=== PATIENT | male | born 1940 | race Caucasian/White ===

== ENCOUNTER 2020-01-22 13:19 | Outpatient (RCR) | payer MEDICARE, OTHER ==
[~2020-01-22] VITALS: Ht 177.8 cm; Wt 98.9 kg
[2020-01-22] MEDS ORDERED: NS IV 1000 ML (CANCER CTR) 1,000 ML ONE (14:13)
[2020-01-22] MEDS ORDERED: NS IV 1000 ML (CANCER CTR) IV SCH (14:30)
[2020-01-22] MEDS ORDERED: NIVOLUMAB 480 MG in NS (IVPB) CANCER CENTER 100 ML IV SCH (14:30)
[2020-01-29] MEDS ORDERED: RT-ALBUINH IH (13:07)
[2020-01-29] MEDS ORDERED: ONDA4TAB11 PO (13:07)
[2020-04-21] MEDS ORDERED: ACET325C7 PO (12:57)
[2020-04-21] MEDS ORDERED: LEVO50TA6 PO (12:57)
[2020-04-21] MEDS ORDERED: APIX5TAB PO (12:57)
[2020-04-21] MEDS ORDERED: NF-BISOP5 PO (12:57)
[2020-04-21] MEDS ORDERED: FINA5TAB6 PO (12:57)
[2020-04-21] MEDS ORDERED: ATOR10TA66 PO (12:57)
[2020-04-21] MEDS ORDERED: TMSL.4C PO (12:57)
[2020-04-21] MEDS ORDERED: LOSA100T57 PO (12:57)
[2020-04-21] MEDS ORDERED: AMLO-251 PO (12:57)
[2020-04-22] MEDS ORDERED: SULF1TAB35 PO ×2 (10:04→10:13)
== END 2020-04-21 | disposition home or self-care (01) ==
LOC: ONC 13:19
PROVIDERS: ATTEND Internal Medicine Hematology & Oncology
DX: Z51.11 Encounter for antineoplastic chemotherapy (principal); C64.1 Malignant neoplasm of right kidney, except renal pelvis; C77.2 Secondary and unspecified malignant neoplasm of intra-abdominal lymph nodes; I82.422 Acute embolism and thrombosis of left iliac vein; I10 Essential (primary) hypertension; Z85.51 Personal history of malignant neoplasm of bladder; Z90.6 Acquired absence of other parts of urinary tract; Z90.5 Acquired absence of kidney
CPT/HCPCS: 96413; G0463

== ENCOUNTER 2020-01-29 08:32 | Emergency (ER) | payer MEDICARE, OTHER ==
[~2020-01-29] VITALS: Ht 177 cm; Wt 97.9 kg
[2020-01-29] MEDS ORDERED: NS IV 1000 ML 1,000 ML IV SCH (08:51)
[2020-01-29] MEDS ORDERED: PIPERACILLIN SODIUM/TAZOBACTAM 4.5 GM in NS (IVPB) 100 ML IV ONE (09:00)
[2020-01-29 09:01] LABS: BASOPHILS % (AUTO) 0 % (0-10); EOSINOPHILS % (AUTO) 0 % (0-10); HEMATOCRIT 41 % (40-54); HEMOGLOBIN 13.4 G/DL (13.3-17.7); LYMPHOCYTES # (AUTO) 1.9 X 10^3 (1.0-4.0); LYMPHOCYTES % (AUTO) 35 % (12-44); MEAN CORPUSCULAR HEMOGLOBIN 28 PG (25-34); MEAN CORPUSCULAR HGB CONC 33 G/DL (32-36); MEAN CORPUSCULAR VOLUME 85 FL (80-99); MEAN PLATELET VOLUME 10.1 FL (7.4-10.4); MONOCYTES # (AUTO) 0.5 X 10^3 (0.0-1.0); MONOCYTES % (AUTO) 10 % (0-12); NEUTROPHILS % (AUTO) 55 % (42-75); PLATELET COUNT 161 10^3/uL (130-400); WHITE BLOOD COUNT 5.4 10^3/uL (4.3-11.0)
[2020-01-29 09:05] LABS: BILIRUBIN,URINE NEGATIVE (NEGATIVE); CLARITY,URINE CLEAR; COLOR,URINE YELLOW; GLUCOSE, URINE (UA) NEGATIVE (NEGATIVE); KETONES,URINE NEGATIVE (NEGATIVE); LEUKOCYTE ESTERASE ,URINE TRACE (NEGATIVE); NITRITE,URINE NEGATIVE (NEGATIVE); PROTEIN,URINE NEGATIVE (NEGATIVE)
[2020-01-29 09:10] LABS: POTASSIUM 3.8 MMOL/L (3.6-5.0)
--- NOTE | 2020-01-29 09:10 | NUR ---
LAB IN ROOM DRAWING AT THIS TIME.
[2020-01-29 09:11] LABS: CALCIUM 8.4 MG/DL (8.5-10.1)
[2020-01-29 09:13] LABS: BACTERIA,URINE TRACE /HPF; RBC,URINE RARE /HPF; SQUAMOUS EPITHELIAL CELL,UR 0-2 /HPF
[2020-01-29 09:13] LABS: TOTAL PROTEIN 7.3 GM/DL (6.4-8.2)
[2020-01-29 09:14] LABS: BILIRUBIN,TOTAL 0.7 MG/DL (0.1-1.0); INR 1.1 (0.8-1.4); PROTHROMBIN TIME PATIENT 14.2 SEC (12.2-14.7)
[2020-01-29 09:16] LABS: CREATININE SERUM 1.37 MG/DL (0.60-1.30)
--- NOTE | 2020-01-29 09:32 | Diagnostic Imaging Report ---
INDICATION: Generalized weakness and fever. Frontal chest obtained at 09:29 a.m. There is no prior study for comparison. FINDINGS: Heart is borderline in size. There is mild central vascular prominence without rubina edema. There is no pneumothorax or pleural fluid. There is vague density overlying the right upper lobe which may represent infiltrate or nodule. Would recommend CT chest for further evaluation. IMPRESSION: Borderline heart size with mild central vascular prominence. No pneumothorax or pleural fluid. There is a vague density overlying the right upper lobe which may represent infiltrate or nodule. Would recommend further evaluation with chest CT. Dictated by: Dictated on workstation # [id number]
--- NOTE | 2020-01-29 09:43 | ED Back Pain ---
General Chief Complaint: - Urinary Stated Complaint: BACK PAIN;WEAKNESS Nursing Triage Note: ARRIVED VIA AMB TO ROOM 06 WITH COMPLAINTS OF GENERALIZED WEAKNESS, BACK PAIN, AND HIGH FEVER. PT THINKS HE HAS ANOTHER BLADDER INFECTION. HX OF BLADDER PROBLEMS. Nursing Sepsis Screen: No Definite Risk Source of Information: Patient Exam Limitations: No Limitations History of Present Illness Date Seen by Provider: Jan 29, 2020 Time Seen by Provider: 08:37 Initial Comments Patient presents ER by private conveyance with chief complaint of fever malaise and backache since Monday, 3 days ago. Tmax of 100.5. He is here visiting his son. He's from [place]. 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 He is followed by urology and oncology in [place] where he is from. He did see Dr. Augustine last week Monday and received a dose of his Optivo. He took some Tylenol for his pain and that took care of his fever as well as backache and he says he is not having any significant pain. He did start taking some leftover amoxicillin he had. He said 3 doses so far. Allergies and Home Medications Allergies Coded Allergies: ciprofloxacin (Verified Allergy, Unknown, 01/22/20) hydrochlorothiazide (Verified Allergy, Unknown, 01/22/20) Home Medications Albuterol Sulfate 1 Puff Puff, 2 PUFF IH Q4H PRN for WHEEZING 1 PUFF = 90 MCG Prescribed by: MARVIN BILL on 01/29/20 1307 Ondansetron 4 Mg Tab.rapdis, 4 MG PO Q6H PRN for NAUSEA/VOMITING Prescribed by: MARVIN BILL on 01/29/20 1307 Patient Home Medication List Home Medication List Reviewed: Yes Review of Systems Constitutional: No chills, No diaphoresis EENTM: No ear discharge, No ear pain Respiratory: No cough, No short of breath Cardiovascular: No chest pain, No edema Gastrointestinal: No abdominal pain, No nausea, No vomiting Genitourinary: No discharge, No dysuria Musculoskeletal: No back pain, No gout, No joint pain Skin: No pruritus, No rash Psychiatric/Neurological: Denies Headache, Denies Numbness All Other Systems Reviewed Negative Unless Noted: Yes Past Nwkbhta-Cmwjen-Oyfatq Hx Patient Social History Alcohol Use: Denies Use Recreational Drug Use: No Smoking Status: Never a Smoker Recent Foreign Travel: No Contact w/Someone Who Travel: No Recent Infectious Disease Expo: No Recent Hopitalizations: No Past Medical History Surgeries: Yes (RIGHT KIDNEY REMOVED, MASS ON BLADDER REMOVED,) Respiratory: No Cardiac: Yes Aneurysm, Hypertension Neurological: No Genitourinary: Yes Prostate Problems Gastrointestinal: No Musculoskeletal: No Endocrine: No HEENT: No Cancer: Yes Bladder, Kidney Did You Recieve Any Treatments: Yes What Type of Treatment Did You: Chemotherapy CURRENTLY RECIEVING CHEMO INJECTIONS MONTHLY. Integumentary: No Physical Exam Vital Signs Vital Signs - First Documented 01/29/20 08:40 Temp 37.3 Pulse 64 Resp 16 B/P (MAP) 142/82 (102) Pulse Ox 95 O2 Delivery Room Air Capillary Refill : Less Than 3 Seconds Height, Weight, BMI Height: '" Weight: lbs. oz. kg; 31.00 BMI Method: General Appearance: No Apparent Distress, WD/WN HEENT: PERRL/EOMI, TMs Normal, Normal ENT Inspection, Pharynx Normal, Moist Muc ous Membranes Neck: Full Range of Motion, Normal Inspection, Non Tender Cardiovascular: Regular Rate, Rhythm, No Edema, Normal Peripheral Pulses Respiratory: Lungs Clear, Normal Breath Sounds, No Accessory Muscle Use, No Respiratory Distress Peripheral Pulses: 2+ Radial Pulses (R), 2+ Radial Pulses (L) Gastrointestinal: Normal Bowel Sounds, No Organomegaly, Non Tender, Soft Back: Normal Inspection, No CVA Tenderness Extremity: Normal Capillary Refill, Normal Inspection Neurologic/Psychiatric: Alert, Oriented x3, No Motor/Sensory Deficits, Normal Mood/Affect Skin: Normal Color, Warm/Dry Progress/Results/Core Measures Results/Orders Lab Results Laboratory Tests Test 01/29/20 08:45 01/29/20 08:59 01/29/20 10:20 Range/Units White Blood Count 5.4 4.3-11.0 10^3/uL Red Blood Count 4.85 4.35-5.85 10^6/uL Hemoglobin 13.4 13.3-17.7 G/DL Hematocrit 41 40-54 % Mean Corpuscular Volume 85 80-99 FL Mean Corpuscular Hemoglobin 28 25-34 PG Mean Corpuscular Hemoglobin Concent 33 32-36 G/DL Red Cell Distribution Width 14.9 H 10.0-14.5 % Platelet Count 161 130-400 10^3/uL Mean Platelet Volume 10.1 7.4-10.4 FL Neutrophils (%) (Auto) 55 42-75 % Lymphocytes (%) (Auto) 35 12-44 % Monocytes (%) (Auto) 10 0-12 % Eosinophils (%) (Auto) 0 0-10 % Basophils (%) (Auto) 0 0-10 % Neutrophils # (Auto) 3.0 1.8-7.8 X 10^3 Lymphocytes # (Auto) 1.9 1.0-4.0 X 10^3 Monocytes # (Auto) 0.5 0.0-1.0 X 10^3 Eosinophils # (Auto) 0.0 0.0-0.3 10^3/uL Basophils # (Auto) 0.0 0.0-0.1 10^3/uL Prothrombin Time 14.2 12.2-14.7 SEC INR Comment 1.1 0.8-1.4 Activated Partial Thromboplast Time 34 24-35 SEC Sodium Level 136 135-145 MMOL/L Potassium Level 3.8 3.6-5.0 MMOL/L Chloride Level 104 98-107 MMOL/L Carbon Dioxide Level 20 L 21-32 MMOL/L Anion Gap 12 5-14 MMOL/L Blood Urea Nitrogen 17 7-18 MG/DL Creatinine 1.37 H 0.60-1.30 MG/DL Estimat Glomerular Filtration Rate 50 BUN/Creatinine Ratio 12 Glucose Level 101 70-105 MG/DL Lactic Acid Level 0.97 0.50-2.00 MMOL/L Calcium Level 8.4 L 8.5-10.1 MG/DL Corrected Calcium 8.4 L 8.5-10.1 MG/DL Total Bilirubin 0.7 0.1-1.0 MG/DL Aspartate Amino Transf (AST/SGOT) 29 5-34 U/L Alanine Aminotransferase (ALT/SGPT) 27 0-55 U/L Alkaline Phosphatase 70 40-136 U/L Total Protein 7.3 6.4-8.2 GM/DL Albumin 4.0 3.2-4.5 GM/DL Urine Color YELLOW Urine Clarity CLEAR Urine pH 6.0 5-9 Urine Specific [place] 1.010 L 1.016-1.022 Urine Protein NEGATIVE NEGATIVE Urine Glucose (UA) NEGATIVE NEGATIVE Urine Ketones NEGATIVE NEGATIVE Urine Nitrite NEGATIVE NEGATIVE Urine Bilirubin NEGATIVE NEGATIVE Urine Urobilinogen 0.2 < = 1.0 MG/DL Urine Leukocyte Esterase TRACE H NEGATIVE Urine RBC (Auto) NEGATIVE NEGATIVE Urine RBC RARE /HPF Urine WBC 2-5 /HPF Urine Squamous Epithelial Cells 0-2 /HPF Urine Crystals NONE /LPF Urine Bacteria TRACE /HPF Urine Casts NONE /LPF Urine Mucus NEGATIVE /LPF Urine Culture Indicated CULTURE PENDING Coronavirus 2019 (TRIP) Positive H Negative Micro Results Microbiology 01/29/20 Influenza Types A,B Antigen (MELLISSA) - Final, Complete My Orders Orders - MARVIN BILL Ua Culture If Indicated (01/29/20 08:34) Cbc With Automated Diff (01/29/20 08:51) Comprehensive Metabolic Panel (01/29/20 08:51) Blood Culture (01/29/20 08:51) Urinalysis (01/29/20 08:51) Urine Culture (01/29/20 08:51) Protime With Inr (01/29/20 08:51) Partial Thromboplastin Time (01/29/20 08:51) Chest 1 View, Ap/Pa Only (01/29/20 08:51) Ed Iv/Invasive Line Start (01/29/20 08:51) Ed Iv/Invasive Line Start (01/29/20 08:51) Vital Signs Adult Sepsis Patie Q15M (01/29/20 08:51) O2 (01/29/20 08:51) Remove Rings In Anticipation O (01/29/20 08:51) Lactic Acid Analyzer (01/29/20 08:51) Ns Iv 1000 Ml (Sodium Chloride 0.9%) (01/29/20 08:51) Piperacillin Sodium/Tazobactam (Zosyn Vi (01/29/20 09:00) Covid 19 Inhouse Test (01/29/20 09:44) Influenza A And B Antigens (01/29/20 09:44) Ct Abdomen/Pelvis Wo (01/29/20 09:44) Medications Given in ED Current Medications Medications Dose Ordered Sig/Hugo Route Start Time Stop Time Status Last Admin Dose Admin Piperacillin Sod/ Tazobactam Sod 4.5 gm/Sodium Chloride 100 ml @ 200 mls/hr ONCE ONCE IV 01/29/20 09:00 01/29/20 09:29 DC 01/29/20 09:49 200 MLS/HR Vital Signs/I&O 01/29/20 01/29/20 08:40 13:25 Temp 37.3 37.3 Pulse 64 66 Resp 16 16 B/P (MAP) 142/82 (102) 151/69 Pulse Ox 95 97 O2 Delivery Room Air Room Air Blood Pressure Mean: 102 Progress Progress Note #1: Time: 09:43 Progress Note Initial labs are fairly unrevealing although he is on immunotherapy. He did take 3 doses of amoxicillin which may be masking his urinary tract infection. We will expand search with a COVID 19 swab, influenza swab and a CT of the abdomen pelvis without IV contrast. Progress Note #2: Time: 13:04 Progress Note Infiltrate seen on chest x-ray likely related to COVID-19. No markers of inflammation or significant elevation in the white count. CT abdomen pelvis unremarkable. He is not requiring oxygen and has aseptic vital signs. That he does not need steroids since he is not requiring any oxygen. We will give him some Zofran, and an albuterol inhaler. Conservative counseling. Return precautions discussed. Diagnostic Imaging Diagonstic Imaging: Xray Plain Films/CT/US/NM/MRI: chest Comments [facility]. [place], [place] NAME: SAMEER MUNOZ [facility] REC#: [id number] PT STATUS: REG ER : 1940 PHYSICIAN: MARVIN BILL MD ADMIT DATE: 01/29/20/ER Signed Date of Exam:01/29/20 CHEST 1 VIEW, AP/PA ONLY INDICATION: Generalized weakness and fever. Frontal chest obtained at 09:29 a.m. There is no prior study for comparison. FINDINGS: Heart is borderline in size. There is mild central vascular prominence without rubina edema. There is no pneumothorax or pleural fluid. There is vague density overlying the right upper lobe which may represent infiltrate or nodule. Would recommend CT chest for further evaluation. IMPRESSION: Borderline heart size with mild central vascular prominence. No pneumothorax or pleural fluid. There is a vague density overlying the right upper lobe which may represent infiltrate or nodule. Would recommend further evaluation with chest CT. Dictated by: Dictated on workstation # [id number] Dict: 01/29/20 0928 Trans: 01/29/20 1051 [id number] Interpreted by: ELLI HERNANDEZ MD Electronically signed by: ELLI HERNANDEZ MD 01/29/20 1051 Reviewed: Reviewed by Me Diagonstic Imaging: CT Plain Films/CT/US/NM/MRI: abdomen, pelvis Comments [facility], [place] NAME: SAMEER MUNOZ [facility] REC#: [id number] PT STATUS: REG ER : 1940 PHYSICIAN: MARVIN BILL MD ADMIT DATE: 01/29/20/ER Draft Date of Exam:01/29/20 CT ABDOMEN/PELVIS WO PROCEDURE: CT abdomen and pelvis without contrast. TECHNIQUE: Multiple contiguous axial images were obtained through the abdomen and pelvis without the use of intravenous contrast. Auto Exposure Controls were utilized during the CT exam to meet ALARA standards for radiation dose reduction. INDICATION: Night sweats, low back pain, fever. Patient has a history of bladder cancer and previous right nephrectomy. FINDINGS: A solitary left kidney is unobstructed and appeared nonfocal and nonacute at this uninfused exam. The bilateral adrenal glands are present and normal. There is no mass or fluid collection in the postoperative right nephrectomy bed. The unopacified urinary bladder had an unremarkable appearance. Some mild zones of bibasilar partial atelectasis. The liver, gallbladder and bile ducts appeared unremarkable. Spleen and pancreas unremarkable. The aorta is nonaneurysmal. There is no bowel obstruction. There is no evidence for diverticulitis or appendicitis. No focal inflammatory process, ascites, abscess, hematoma or acute fluid collection. Reconstruction views are performed at the desktop and showed normal lumbar statures aligned anatomically. No bony destructive process or fracture. No lymphadenopathy. No paravertebral mass, hemorrhage or fluid collection. The bony pelvis nonacute. IMPRESSION: No findings of neoplastic recurrence. No bowel, biliary or urinary tract obstruction, inflammatory process, ascites, fluid collection or acute appearing abnormalities. Dictated on workstation # [id number] Dict: 01/29/20 1019 Trans: 01/29/20 1029 [facility] [id number] Interpreted by: SHAILESH SPENCE Electronically signed by: Reviewed: Reviewed by Me Departure Impression Primary Impression: COVID-19 Disposition: 01 HOME, SELF-CARE Condition: Stable Departure-Patient Inst. Decision time for Depature: 13:06 Patient Instructions: Coronavirus Disease 2019 (COVID-19) (DC) Add. Discharge Instructions: Drink plenty of fluids. Tylenol 650 mg every 6 hours for fever or chills. Heating pads and topical creams for your back may also be helpful. If you have intractable cough or wheezing then you can take 2 puffs of albuterol every 4 hours as needed. If you have nausea or vomiting then you can take ondansetron under the tongue every 6 hours as needed. If you have difficulty breathing, chest pain or other worrisome symptoms please return to the nearest ER immediately. All discharge instructions reviewed with patient and/or family. Voiced understanding. Scripts Albuterol Sulfate (PROAIR HFA) 1 Puff Puff 2 PUFF IH Q4H PRN for WHEEZING, #1 EA 0 Refills 1 PUFF = 90 MCG Prov: MARVIN BILL 01/29/20 Ondansetron (Ondansetron Odt) 4 Mg Tab.rapdis 4 MG PO Q6H PRN for NAUSEA/VOMITING, #20 TAB 0 Refills Prov: MARVIN BILL 01/29/20 MARVIN BILL Jan 29, 2020 09:43
--- NOTE | 2020-01-29 10:31 | Diagnostic Imaging Report ---
PROCEDURE: CT abdomen and pelvis without contrast. TECHNIQUE: Multiple contiguous axial images were obtained through the abdomen and pelvis without the use of intravenous contrast. Auto Exposure Controls were utilized during the CT exam to meet ALARA standards for radiation dose reduction. INDICATION: Night sweats, low back pain, fever. Patient has a history of bladder cancer and previous right nephrectomy. FINDINGS: A solitary left kidney is unobstructed and appeared nonfocal and nonacute at this uninfused exam. The bilateral adrenal glands are present and normal. There is no mass or fluid collection in the postoperative right nephrectomy bed. The unopacified urinary bladder had an unremarkable appearance. Some mild zones of bibasilar partial atelectasis. The liver, gallbladder and bile ducts appeared unremarkable. Spleen and pancreas unremarkable. The aorta is nonaneurysmal. There is no bowel obstruction. There is no evidence for diverticulitis or appendicitis. No focal inflammatory process, ascites, abscess, hematoma or acute fluid collection. Reconstruction views are performed at the desktop and showed normal lumbar statures aligned anatomically. No bony destructive process or fracture. No lymphadenopathy. No paravertebral mass, hemorrhage or fluid collection. The bony pelvis nonacute. IMPRESSION: No findings of neoplastic recurrence. No bowel, biliary or urinary tract obstruction, inflammatory process, ascites, fluid collection or acute appearing abnormalities. Dictated by: Dictated on workstation # [id number]
--- NOTE | 2020-01-29 11:33 | NUR ---
PT UPDATED. NOTIFIED HIM WAS BUSY AT THIS TIME AND WOULD BE IN TO SEE HIM SOON HE COULD.
--- NOTE | 2020-01-29 12:10 | NUR ---
RESTING IN BED. CHILLING. TEMP 98.2. WATER GIVEN ET NEW PILLOW GIVEN. PT STATES HE HAS BEEN UPDATING HIS FAMILY BY PHONE. NOTIFIED PT THAT WAS WITH A CRITICAL PT AND WOULD BE IN SOON HE COULD.
--- NOTE | 2020-01-29 12:45 | NUR ---
IN TALKING WITH THE PT AT THIS TIME.
[2020-01-29] MEDS ORDERED: RT-ALBUINH IH (13:07)
[2020-01-29] MEDS ORDERED: ONDA4TAB11 PO (13:07)
[2020-01-29 13:25] VITALS: BP 151/69
--- NOTE | 2020-01-29 13:25 | NUR ---
PT'S IS COMING TO GET HIM. HE CALLED HER ON THE PHONE AND SHE WAS LEAVING. PT WANTS TO SIT OUT SIDE AND WAIT ON HIM. PT STATES HE IS FINE WAITING FOR HER.
== END 2020-01-29 13:25 | disposition home or self-care (01) ==
LOC: EDUNIT# 08:32 → ER 08:34
DX: U07.1 COVID-19 (principal); C79.11 Secondary malignant neoplasm of bladder; Z88.1 Allergy status to other antibiotic agents; Z88.8 Allergy status to other drugs, medicaments and biological substances; Z85.528 Personal history of other malignant neoplasm of kidney
CPT/HCPCS: 71045; 74176; 80053; 81000; 83605; 85025; 85610; 85730; 87040; 87088; 87804; U0002; 36415; 87635

== ENCOUNTER → 2020-04-10 | Outpatient (CLI) | payer MEDICARE, OTHER ==
[~2020-04-10] MED LIST: ONDA4TAB11 PO; RT-ALBUINH IH
--- NOTE | 2020-04-10 09:53 | Diagnostic Imaging Report ---
PROCEDURE: CT chest without contrast. TECHNIQUE: Multiple contiguous axial images were obtained through the chest without the use of intravenous contrast. Auto Exposure Controls were utilized during the CT exam to meet ALARA standards for radiation dose reduction. DATE: April 10, 2020. COMPARISON: Chest radiograph January 29, 2020. INDICATION: 79-year-old male, history of right renal malignancy. Patient was Covid positive approximately 2 months ago. PROCEDURE: Axial noncontrasted CT images of the chest. Noncontrasted limits the evaluation of the mediastinum and vascular structures. FINDINGS: There are very subtle patchy multifocal areas of groundglass lung consolidation. There is a 4 mm calcified right middle lobe granuloma on axial image 75. There are predominantly linear opacities in the right middle lobe compatible with mild scarring and/or atelectasis. There is also mild scarring and/or atelectasis in the right lower lobe. There is a 4 mm noncalcified right lower lobe pulmonary nodule on axial image 94. There are subjacent 3 to 4 mm noncalcified right lower lobe pulmonary nodules on axial image 103 and adjacent sequential images. There is a benign calcified 5 mm right lower lobe granuloma on axial image 76. There is a pleurally-based 3 mm right lower lobe pulmonary nodule on axial image 71. There is a pleurally-based 6 mm left upper lobe pulmonary nodule on axial image 88. There is a noncalcified 5 mm left upper lobe pulmonary nodule on axial image 87. There is a 4 mm noncalcified left lower lobe pulmonary nodule on axial image 112. There is no pneumothorax. There is no pleural effusion. Central airways are patent. There are calcified right hilar and subcarinal lymph nodes consistent with sequela of prior granulomatous disease. There is a noncalcified right paratracheal lymph node on axial image 57 measuring 9 mm in short axis. There is no mediastinal or axillary lymph node which specifically meets CT size criteria for adenopathy. The heart is not enlarged. There is no pericardial effusion. The patient is status post right nephrectomy. There are atherosclerotic calcifications. There are multilevel degenerative changes of the spine. There is no identified acute bony abnormality. IMPRESSION: 1. Subcentimeter pulmonary nodules, as above. Recommend short-term follow-up CT chest without contrast in 2 to 3 months to evaluate for stability. 2. Subtle patchy multifocal areas of groundglass lung consolidation which may relate to prior history of Covid [address] imaging is not available to assess for interval change in appearance. A pneumonitis is the primary differential diagnostic consideration. Dictated by: Dictated on workstation # [id number]
== END ==
LOC: RAD 09:15
DX: Z51.11 Encounter for antineoplastic chemotherapy (principal); C64.1 Malignant neoplasm of right kidney, except renal pelvis; I82.401 Acute embolism and thrombosis of unspecified deep veins of right lower extremity; N28.0 Ischemia and infarction of kidney; R91.8 Other nonspecific abnormal finding of lung field
CPT/HCPCS: 71250

== ENCOUNTER 2020-04-20 13:15 | Inpatient (IN) | payer MEDICARE, OTHER ==
[~2020-04-20] VITALS: Ht 177 cm; Wt 97.2 kg
--- NOTE | 2020-04-20 13:56 | ED General ---
General Chief Complaint: Fever-Adult/Adol Stated Complaint: FEVER Nursing Triage Note: PT AMB TO ROOM 10 CO OF FEVER, THINKS MAYBE HAS UTI Nursing Sepsis Screen: No Definite Risk Source of Information: Patient Exam Limitations: No Limitations History of Present Illness Date Seen by Provider: Apr 20, 2020 Time Seen by Provider: 13:51 Initial Comments ER with reports of fever up to 104 degrees at home this morning. He was chilling at the time. Was given 1000 g of Tylenol and upon arrival to ER temperature is 100.8. He does report some urinary frequency onset this morning with urinating about 4 times in the past 1 to 2 hours which is unusual for him. He has a history of renal cell carcinoma status post right nephrectomy and is on Opdivo once a month. He is from [facility] where he receives most of his treatment but he is here helping to care for his ill son. He has subsequently followed with Dr. Augustine from oncology. He was hospitalized from March 03- with Covid. Timing/Duration: 4-6 Hours Severity: Moderate Associated Systoms: No Cough; Fever/Chills Allergies and Home Medications Allergies Coded Allergies: ciprofloxacin (Verified Allergy, Unknown, 04/20/20) hydrochlorothiazide (Verified Allergy, Unknown, 04/20/20) Home Medications Albuterol Sulfate 1 Puff Puff, 2 PUFF IH Q4H PRN for WHEEZING 1 PUFF = 90 MCG Prescribed by: MARVIN BILL on 01/29/20 1307 Ondansetron 4 Mg Tab.rapdis, 4 MG PO Q6H PRN for NAUSEA/VOMITING Prescribed by: MARVIN BILL on 01/29/20 1307 Patient Home Medication List Home Medication List Reviewed: Yes Review of Systems Review of Systems Constitutional: see HPI, chills, fever, malaise EENTM: see HPI Respiratory: no symptoms reported Cardiovascular: no symptoms reported Gastrointestinal: No abdominal pain Genitourinary: see HPI, dysuria, frequency Musculoskeletal: no symptoms reported Skin: no symptoms reported Psychiatric/Neurological: No Symptoms Reported Hematologic/Lymphatic: No Symptoms Reported Past Jjhrrfd-Gckxzn-Ckrqni Hx Patient Social History Alcohol Use: Denies Use Recreational Drug Use: No Smoking Status: Never a Smoker Recent Foreign Travel: No Contact w/Someone Who Travel: No Recent Infectious Disease Expo: No Recent Hopitalizations: Yes (JAN COVID 19) Physical Abuse: No Sexual Abuse: No Past Medical History Surgeries: Yes (RIGHT KIDNEY REMOVED, MASS ON BLADDER REMOVED,) Respiratory: No Cardiac: Yes Aneurysm, Hypertension Neurological: No Genitourinary: Yes Prostate Problems Gastrointestinal: No Musculoskeletal: No Endocrine: No HEENT: No Cancer: Yes Bladder, Kidney Did You Recieve Any Treatments: Yes What Type of Treatment Did You: Chemotherapy Integumentary: No Physical Exam Vital Signs Vital Signs - First Documented 04/20/20 04/20/20 13:25 15:30 Temp 38.9 Pulse 81 Resp 20 B/P (MAP) 138/85 (102) Pulse Ox 96 O2 Delivery Room Air Capillary Refill : Less Than 3 Seconds Height, Weight, BMI Height: '" Weight: lbs. oz. kg; 31.00 BMI Method: General Appearance: No Apparent Distress, WD/WN, Other (Very pleasant gentleman no distress vitals stable.) Eyes: Bilateral Eye Normal Inspection, Bilateral Eye PERRL, Bilateral Eye EOMI Neck: Full Range of Motion, Normal Inspection Respiratory: Normal Breath Sounds, No Accessory Muscle Use, No Respiratory Distress Cardiovascular: Regular Rate, Rhythm, Normal Peripheral Pulses Gastrointestinal: Normal Bowel Sounds, Non Tender, Soft Neurologic/Psychiatric: Alert, Oriented x3 Skin: Normal Color, Warm/Dry Focused Exam Lactate Level 04/20/20 13:30: Lactic Acid Level 1.25 Lactic Acid Level Progress/Results/Core Measures Suspected Sepsis Recent Fever Within 48 Hours: Yes Infection Criteria Present: Suspected New Infection New/Unexplained Altered Menta: No Sepsis Screen: No Definite Risk SIRS Temperature: Pulse: 81 Respiratory Rate: 20 Laboratory Tests 04/20/20 13:30: White Blood Count 17.5H Blood Pressure 138 /85 Mean: 102 04/20/20 13:30: Lactic Acid Level 1.25 Laboratory Tests 04/20/20 13:30: Creatinine 1.20, INR Comment 1.0, Platelet Count 178, Total Bilirubin 0.9 Results/Orders Lab Results Laboratory Tests Test 04/20/20 13:28 04/20/20 13:30 Range/Units Urine Color YELLOW Urine Clarity CLOUDY Urine pH 6.0 5-9 Urine Specific Cameron 1.015 L 1.016-1.022 Urine Protein TRACE H NEGATIVE Urine Glucose (UA) NEGATIVE NEGATIVE Urine Ketones NEGATIVE NEGATIVE Urine Nitrite POSITIVE H NEGATIVE Urine Bilirubin NEGATIVE NEGATIVE Urine Urobilinogen 0.2 < = 1.0 MG/DL Urine Leukocyte Esterase 2+ H NEGATIVE Urine RBC (Auto) 3+ H NEGATIVE Urine RBC 5-10 H /HPF Urine WBC 50-100 H /HPF Urine Squamous Epithelial Cells 0-2 /HPF Urine Crystals NONE /LPF Urine Bacteria LARGE H /HPF Urine Casts NONE /LPF Urine Mucus NEGATIVE /LPF Urine Culture Indicated YES White Blood Count 17.5 H 4.3-11.0 10^3/uL Red Blood Count 4.74 4.30-5.52 10^6/uL Hemoglobin 13.1 L 13.3-17.7 g/dL Hematocrit 42 40-54 % Mean Corpuscular Volume 88 80-99 fL Mean Corpuscular Hemoglobin 28 25-34 pg Mean Corpuscular Hemoglobin Concent 31 L 32-36 g/dL Red Cell Distribution Width 15.5 H 10.0-14.5 % Platelet Count 178 130-400 10^3/uL Mean Platelet Volume 10.4 9.0-12.2 fL Immature Granulocyte % (Auto) 1 % Neutrophils (%) (Auto) 86 H 42-75 % Lymphocytes (%) (Auto) 8 L 12-44 % Monocytes (%) (Auto) 5 0-12 % Eosinophils (%) (Auto) 0 0-10 % Basophils (%) (Auto) 0 0-10 % Neutrophils # (Auto) 15.0 H 1.8-7.8 10^3/uL Lymphocytes # (Auto) 1.4 1.0-4.0 10^3/uL Monocytes # (Auto) 1.0 0.0-1.0 10^3/uL Eosinophils # (Auto) 0.0 0.0-0.3 10^3/uL Basophils # (Auto) 0.1 0.0-0.1 10^3/uL Immature Granulocyte # (Auto) 0.1 0.0-0.1 10^3/uL Neutrophils % (Manual) 81 % Lymphocytes % (Manual) 7 % Monocytes % (Manual) 8 % Eosinophils % (Manual) 1 % Band Neutrophils 3 % Blood Morphology Comment NORMAL Prothrombin Time 13.7 12.2-14.7 SEC INR Comment 1.0 0.8-1.4 Activated Partial Thromboplast Time 28 24-35 SEC Sodium Level 134 L 135-145 MMOL/L Potassium Level 3.8 3.6-5.0 MMOL/L Chloride Level 102 98-107 MMOL/L Carbon Dioxide Level 20 L 21-32 MMOL/L Anion Gap 12 5-14 MMOL/L Blood Urea Nitrogen 17 7-18 MG/DL Creatinine 1.20 0.60-1.30 MG/DL Estimat Glomerular Filtration Rate 59 BUN/Creatinine Ratio 14 Glucose Level 108 H 70-105 MG/DL Lactic Acid Level 1.25 0.50-2.00 MMOL/L Calcium Level 8.5 8.5-10.1 MG/DL Corrected Calcium 8.3 L 8.5-10.1 MG/DL Total Bilirubin 0.9 0.1-1.0 MG/DL Aspartate Amino Transf (AST/SGOT) 17 5-34 U/L Alanine Aminotransferase (ALT/SGPT) 18 0-55 U/L Alkaline Phosphatase 63 40-136 U/L Total Protein 7.2 6.4-8.2 GM/DL Albumin 4.2 3.2-4.5 GM/DL Micro Results Microbiology 04/20/20 Influenza Types A,B Antigen (MELLISSA) - Final, Complete My Orders Orders - LUIS FERNANDO GISBON APRN Cbc With Automated Diff (04/20/20 13:48) Comprehensive Metabolic Panel (04/20/20 13:48) Blood Culture (04/20/20 13:48) Sputum Culture (04/20/20 13:48) Urinalysis (04/20/20 13:48) Urine Culture (04/20/20 13:48) Protime With Inr (04/20/20 13:48) Partial Thromboplastin Time (04/20/20 13:48) Chest 1 View, Ap/Pa Only (04/20/20 13:48) Ed Iv/Invasive Line Start (04/20/20 13:48) Ed Iv/Invasive Line Start (04/20/20 13:48) Vital Signs Adult Sepsis Patie Q15M (04/20/20 13:48) O2 (04/20/20 13:48) Remove Rings In Anticipation O (04/20/20 13:48) Lactic Acid Analyzer (04/20/20 13:48) Lactated Ringers (Lr 1000 Ml Iv Solution (04/20/20 14:00) Influenza A And B Antigens (04/20/20 13:49) Manual Differential (04/20/20 13:30) Meropenem (Merrem 1000 Mg) (04/20/20 14:15) Medications Given in ED Current Medications Medications Dose Ordered Sig/Hugo Route Start Time Stop Time Status Last Admin Dose Admin Meropenem 1000 mg/ Sterile Water 20 ml @ 240 mls/hr ONCE ONCE IV 04/20/20 14:15 04/20/20 14:19 DC 04/20/20 14:28 240 MLS/HR Vital Signs/I&O 04/20/20 04/20/20 04/20/20 04/20/20 13:25 15:30 15:47 15:51 Temp 38.9 38.0 38.0 Pulse 81 101 73 73 Resp 20 26 22 22 B/P (MAP) 138/85 (102) 135/99 127/77 127/77 (94) Pulse Ox 96 97 97 97 O2 Delivery Room Air Room Air Room Air 04/20/20 04/20/20 04/20/20 04/20/20 16:31 18:43 19:56 20:31 Temp 39.4 38.3 39.2 Pulse 73 Resp 18 B/P (MAP) 143/68 (93) Pulse Ox 97 98 O2 Delivery Room Air Room Air Capillary Refill : Less Than 3 Seconds Blood Pressure Mean: 102 Departure Communication (Admissions) Family Conversation Spoke with Dr king and Dr Sorensen. Dr king will consult if Dr Sorensen needs him to. Agrees with empiric meropenem given most recent UA from January showing ESBL Ecoli and pts known allergy to a fluoroquinolone. Will admit on this regimen until this urine culture is back. NAME: SAMEER MUNOZ MED REC#: [id number] PT STATUS: REG ER : 1940 PHYSICIAN: LUIS FERNANDO GIBSON APRN ADMIT DATE: 04/20/20/ER Draft Date of Exam:04/20/20 CHEST 1 VIEW, AP/PA ONLY INDICATION: Fever. TIME OF EXAM: 02:13 p.m. COMPARISON: Correlation is made with prior chest from 01/29/2020. FINDINGS: Heart size is normal. Lungs appear to be fairly clear on today's study apart from perhaps minimal infiltrate or atelectasis in the right base. The pulmonary vascularity is normal. No effusion or pneumothorax is seen. IMPRESSION: Minimal right basilar infiltrate or atelectasis. Dictated on workstation # [id number] Dict: 04/20/20 1418 Trans: 04/20/20 1420 [id number] [id number] Interpreted by: JAIDEN CHANG MD Electronically signed by: Impression Primary Impression: Sepsis Additional Impression: UTI (urinary tract infection) Disposition: ADMITTED INPATIENT Condition: Stable Departure-Patient Inst. Referrals: NO,LOCAL PHYSICIAN (PCP/Family) Primary Care Physician LUIS FERNANDO GIBSON BABY DOCTOR Apr 20, 2020 13:56
[2020-04-20 13:59] LABS: BILIRUBIN,URINE NEGATIVE (NEGATIVE); CLARITY,URINE CLOUDY; COLOR,URINE YELLOW; GLUCOSE, URINE (UA) NEGATIVE (NEGATIVE); KETONES,URINE NEGATIVE (NEGATIVE); LEUKOCYTE ESTERASE ,URINE 2+ (NEGATIVE); NITRITE,URINE POSITIVE (NEGATIVE); PROTEIN,URINE TRACE (NEGATIVE)
[2020-04-20 14:00] LABS: ALBUMIN 4.2 GM/DL (3.2-4.5); POTASSIUM 3.8 MMOL/L (3.6-5.0)
[2020-04-20] MEDS ORDERED: LACTATED RINGERS 1,000 ML IV SCH (14:00)
[2020-04-20 14:01] LABS: BASOPHILS # (AUTO) 0.1 10^3/uL (0.0-0.1); BASOPHILS % (AUTO) 0 % (0-10); EOSINOPHILS % (AUTO) 0 % (0-10); HEMATOCRIT 42 % (40-54); HEMOGLOBIN 13.1 g/dL (13.3-17.7); LYMPHOCYTES # (AUTO) 1.4 10^3/uL (1.0-4.0); LYMPHOCYTES % (AUTO) 8 % (12-44); MEAN CORPUSCULAR HEMOGLOBIN 28 pg (25-34); MEAN CORPUSCULAR HGB CONC 31 g/dL (32-36); MEAN CORPUSCULAR VOLUME 88 fL (80-99); MEAN PLATELET VOLUME 10.4 fL (9.0-12.2); MONOCYTES % (AUTO) 5 % (0-12); NEUTROPHILS % (AUTO) 86 % (42-75); PLATELET COUNT 178 10^3/uL (130-400); WHITE BLOOD COUNT 17.5 10^3/uL (4.3-11.0)
[2020-04-20 14:02] LABS: CALCIUM 8.5 MG/DL (8.5-10.1)
[2020-04-20 14:03] LABS: TOTAL PROTEIN 7.2 GM/DL (6.4-8.2)
[2020-04-20 14:05] LABS: BILIRUBIN,TOTAL 0.9 MG/DL (0.1-1.0); PROTHROMBIN TIME PATIENT 13.7 SEC (12.2-14.7)
[2020-04-20 14:06] LABS: BACTERIA,URINE LARGE /HPF; SQUAMOUS EPITHELIAL CELL,UR 0-2 /HPF; WBC,URINE 50-100 /HPF
[2020-04-20 14:06] LABS: CREATININE SERUM 1.2 MG/DL (0.60-1.30)
[2020-04-20 14:11] LABS: BAND NEUTROPHILS 3 %; EOSINOPHILS % (MANUAL) 1 %; LYMPHOCYTES % (MANUAL) 7 %; MONOCYTES % (MANUAL) 8 %; NEUTROPHILS % (MANUAL) 81 %; RBC MORPH NORMAL
[2020-04-20] MEDS ORDERED: MEROPENEM 1,000 MG in WATER (STERILE) FOR INJECTION 20 ML IV ONE (14:15)
--- NOTE | 2020-04-20 14:21 | Diagnostic Imaging Report ---
INDICATION: Fever. TIME OF EXAM: 02:13 p.m. COMPARISON: Correlation is made with prior chest from 01/29/2020. FINDINGS: Heart size is normal. Lungs appear to be fairly clear on today's study apart from perhaps minimal infiltrate or atelectasis in the right base. The pulmonary vascularity is normal. No effusion or pneumothorax is seen. IMPRESSION: Minimal right basilar infiltrate or atelectasis. Dictated by: Dictated on workstation # [id number]
--- NOTE | 2020-04-20 15:45 | NUR ---
SAMEER MUNOZ admitted to room 418-1, with an admitting diagnosis of UROSEPSIS, on 04/20/20 from ED via , accompanied by STAFF. SAMEER MUNOZ introduced to surroundings, call light, bed controls, phone, TV, temperature control, lights, meal times, smoking policy, visitor policy, side rail policy, bathrooms and showers. Patient Rights given to patient in the handbook. SAMEER MUNOZ verbalizes understanding that [facility] is not responsible for the loss or damage to any personal effects or valuables that are kept in the patients posession during their hospitalization. The following Patient Care Plans were discussed with the PT: Discharge Planning, PAIN, AND UTI. SAMEER MUNOZ verbalizes understanding of Interdisciplinary Patient Education. Patient and/or family were informed about the Rapid Response Team and its purpose.
[2020-04-20 15:47] VITALS: BP 127/77
[2020-04-20 15:51] VITALS: BP 127/77
[2020-04-20] MEDS ORDERED: ACETAMINOPHEN 325 MG TABLET PO PRN ×2 (16:00→19:00)
[2020-04-20] MEDS: LACTATED RINGERS 1,000 ML IV SCH ×2 (16:00→17:18)
[2020-04-20] MEDS ORDERED: ONDANSETRON 4 MG/2 ML (SDV) Z0FRAN IVP PRN (16:00)
--- NOTE | 2020-04-20 17:19 | NUR ---
TYLENOL 650 PER PT REQUEST FOR GENERAL DISCOMFORT.
--- NOTE | 2020-04-20 18:44 | NUR ---
TEMP NOW 39.4. DR. DE LA PAZ NOTIFIED. TOO EARLY FOR TYLENOL.
[2020-04-20] MEDS ORDERED: ANTACID SUSP 30 ML UDC (MYLANTA) PO PRN (19:00)
[2020-04-20] MEDS ORDERED: MELATONIN 3 MG TABLET PO PRN (19:00)
[2020-04-20] MEDS ORDERED: ONDANSETRON 4 MG (ZOFRAN) ORAL DISSOLVE TAB PO PRN (19:00)
[2020-04-20] MEDS ORDERED: ONDANSETRON 4 MG/2 ML (SDV) Z0FRAN IV PRN (19:00)
[2020-04-20] MEDS ORDERED: ACETAMINOPHEN 325 MG TABLET PO ONE (19:00)
[2020-04-20] MEDS ORDERED: polyethylene glycoL POWDER 17 GM (MIRALAX) PACK PO PRN (19:00)
[2020-04-20] MEDS ORDERED: ENOXAPARIN 40 MG/0.4 ML (LOVENOX) SYR SC SCH (19:00)
[2020-04-20] MEDS: MEROPENEM 500 MG/SWFI 10 ML IV PUSH IV SCH ×2 (20:12)
[2020-04-20] MEDS: DOCUSATE SODIUM 100 MG (COLACE) CAP PO SCH (20:12)
[2020-04-20] MEDS: SENNOSIDES 8.6 MG (SENOKOT) TAB PO SCH (20:13)
[2020-04-20 20:31] VITALS: BP 143/68
[2020-04-20] MEDS: TAMSULOSIN 0.4 MG (FLOMAX) CAP PO SCH (21:07)
[2020-04-21 00:05] VITALS: BP 114/68
[2020-04-21] MEDS: LACTATED RINGERS 1,000 ML IV SCH ×3 (02:27→22:38)
[2020-04-21] MEDS: MEROPENEM 500 MG/SWFI 10 ML IV PUSH IV SCH ×8 (02:27→22:39)
[2020-04-21 04:11] VITALS: BP 72/68
[2020-04-21 06:11] LABS: BASOPHILS % (AUTO) 0 % (0-10); EOSINOPHILS % (AUTO) 0 % (0-10); HEMATOCRIT 36 % (40-54); HEMOGLOBIN 11.3 g/dL (13.3-17.7); LYMPHOCYTES # (AUTO) 2.4 10^3/uL (1.0-4.0); LYMPHOCYTES % (AUTO) 14 % (12-44); MEAN CORPUSCULAR HEMOGLOBIN 28 pg (25-34); MEAN CORPUSCULAR HGB CONC 31 g/dL (32-36); MEAN CORPUSCULAR VOLUME 89 fL (80-99); MEAN PLATELET VOLUME 10.5 fL (9.0-12.2); MONOCYTES # (AUTO) 1.2 10^3/uL (0.0-1.0); MONOCYTES % (AUTO) 7 % (0-12); NEUTROPHILS # (AUTO) 14.1 10^3/uL (1.8-7.8); NEUTROPHILS % (AUTO) 79 % (42-75); PLATELET COUNT 136 10^3/uL (130-400); WHITE BLOOD COUNT 17.8 10^3/uL (4.3-11.0)
[2020-04-21 06:35] LABS: CHLORIDE 106 MMOL/L (98-107); POTASSIUM 3.5 MMOL/L (3.6-5.0); SODIUM 137 MMOL/L (135-145)
[2020-04-21 06:36] LABS: CALCIUM 7.7 MG/DL (8.5-10.1); GLUCOSE 118 MG/DL (70-105)
[2020-04-21 06:38] LABS: CARBON DIOXIDE 21 MMOL/L (21-32)
[2020-04-21 06:40] LABS: CREATININE SERUM 1.13 MG/DL (0.60-1.30); GFR ESTIMATED > 60
[2020-04-21 06:41] LABS: BUN/CREATININE RATIO 14
[2020-04-21 08:00] VITALS: BP 128/72
[2020-04-21] MEDS: SENNOSIDES 8.6 MG (SENOKOT) TAB PO SCH ×2 (09:00→20:32)
[2020-04-21] MEDS: DOCUSATE SODIUM 100 MG (COLACE) CAP PO SCH ×2 (09:00→20:32)
[2020-04-21 12:00] VITALS: BP 122/71
[2020-04-21] MEDS ORDERED: APIXABAN 5 MG (ELIQUIS) TABLET PO ONE (12:45)
--- NOTE | 2020-04-21 12:54 | History & Physical-Hospitalist ---
History of Present Illness HPI/Chief Complaint Sumanth Michaud is a 79-year-old male with past medical history of metastatic renal cell carcinoma s/p nephrectomy currently on Opdivo who presented with fever and chills. He reports that he had been at home and started to feel chilly. His whkmboua-up-ulu is a physician and recommended that he come to the ER to get checked out. He denies shortness of breath and cough. He denies chest pain. He denies abdominal pain. He denies nausea and vomiting. He denies diarrhea. He denies dysuria. He does have urinary frequency and nocturia. He has a history of enlarged prostate and these symptoms are not any different than normal. He is from [place] and is only here visiting. Source: patient Exam Limitations: no limitations Date Seen 04/21/20 Time Seen by a Provider: 09:25 Attending Physician Zahira De La Paz MD PCP No,Local Physician Referring Physician Date of Admission Apr 20, 2020 at 14:16 Home Medications & Allergies Home Medications Reviewed patient Home Medication Reconciliation performed by pharmacy medication reconciliations emission technician and/or nursing. Patients Allergies have been reviewed. Allergies Allergies Coded Allergies cephalexin (Verified Allergy, Unknown, Rash, 04/21/20) hydrochlorothiazide (Verified Allergy, Unknown, 04/20/20) Past Psmimki-Sogcka-Ojlsjw Hx Past Med/Social Hx: Reviewed Nursing Past Med/Soc Hx Patient Social History Alcohol Use: Denies Use Recreational Drug Use: No Smoking Status: Never a Smoker Physical Abuse Screen: No Sexual Abuse: No Recent Foreign Travel: No Contact w/other who traveled: No Recent Hopitalizations: Yes (Jan) Recent Infectious Disease Expo: No Seasonal Allergies Seasonal Allergies: Yes Past Medical History Cardiac: Aneurysm, Hypertension Genitourinary: Prostate Problems Cancer: Bladder, Kidney Did You Recieve Any Treatments: Yes What Type of Treatment Did You: Chemotherapy History of Blood Disorders: No Adverse Reaction to Blood Castillo: No Family History Neoplasm SON Review of Systems Constitutional: chills, fever EENTM: no symptoms reported Respiratory: no symptoms reported Cardiovascular: no symptoms reported Gastrointestinal: no symptoms reported Genitourinary: frequency, nocturia Musculoskeletal: no symptoms reported Skin: no symptoms reported Psychiatric/Neurological: No Symptoms Reported Physical Exam Physical Exam Vital Signs Vital Signs - First Documented 04/20/20 04/20/20 13:25 15:30 Temp 38.9 Pulse 81 Resp 20 B/P (MAP) 138/85 (102) Pulse Ox 96 O2 Delivery Room Air Capillary Refill : Less Than 3 SecondsLess Than 3 Seconds Height, Weight, BMI Height: '" Weight: lbs. oz. kg; 31.02 BMI Method: General Appearance: No Apparent Distress, Obese HEENT: PERRL/EOMI, Pharynx Normal Neck: Normal Inspection, Supple Respiratory: Lungs Clear, Normal Breath Sounds, No Respiratory Distress Cardiovascular: Regular Rate, Rhythm, No Edema, No Murmur Gastrointestinal: Normal Bowel Sounds, Non Tender, Soft Extremity: Normal Inspection, Non Tender, No Pedal Edema Neurologic/Psychiatric: Alert, Oriented x3, No Motor/Sensory Deficits, Normal Mood/Affect Skin: Normal Color, Warm/Dry Results Results/Procedures Labs Laboratory Tests 04/20/20 13:30 04/21/20 05:58 Patient resulted labs reviewed. Imaging: Reviewed Imaging Report Assessment/Plan Admission Diagnosis Sepsis due to urinary tract infection Admission Status: Inpatient Order (span 2 midnights) Reason for Inpatient Admission: UTI requiring IV fluids and antibiotics Assessment and Plan Sepsis due to UTI History of ESBL Acute kidney injury SIRS+ with fever and leukocytosis UA consistent with UTI Prior urine culture grew ESBL Creatinine elevated from baseline on arrival, improved this morning Continue IV fluids Started on Meropenem Await culture results Metastatic renal cell carcinoma s/p nephrectomy Discussed case with urologist, Dr. Grijalva Monitor urine output Bladder scan as needed May benefit from catheter if needed History of pulmonary embolism Continue Eliquis HTN Hold home meds, await med rec Obesity Clinically significant, no acute management needs DVT Prophylaxis: already receiving therapeutic anticoagulation Diagnosis/Problems Diagnosis/Problems (1) Sepsis Status: Acute (2) UTI (urinary tract infection) Status: Acute (3) History of ESBL E. coli infection Status: Chronic (4) MARCEL (acute kidney injury) Status: Acute (5) Metastatic renal cell carcinoma Status: Chronic (6) Status post nephrectomy Status: Chronic (7) HTN (hypertension) Status: Chronic Qualifiers: Hypertension type: essential hypertension Qualified Codes: I10 - Essential (primary) hypertension (8) Obesity Status: Chronic (9) History of pulmonary embolism Status: Chronic Clinical Quality Measures DVT/VTE Risk/Contraindication: Risk Factor Score Per Nursin RFS Level Per Nursing on Admit: 4+=Very High ZAHIRA DE LA PAZ MD Apr 21, 2020 12:54
[2020-04-21] MEDS ORDERED: TMSL.4C PO (12:57)
[2020-04-21] MEDS ORDERED: LOSA100T57 PO (12:57)
[2020-04-21] MEDS ORDERED: ATOR10TA66 PO (12:57)
[2020-04-21] MEDS ORDERED: ACET325C7 PO (12:57)
[2020-04-21] MEDS ORDERED: FINA5TAB6 PO (12:57)
[2020-04-21] MEDS ORDERED: NF-BISOP5 PO (12:57)
[2020-04-21] MEDS ORDERED: AMLO-251 PO (12:57)
[2020-04-21] MEDS ORDERED: LEVO50TA6 PO (12:57)
[2020-04-21] MEDS ORDERED: APIX5TAB PO (12:57)
--- NOTE | 2020-04-21 13:00 | NUR ---
SPOKE WITH THE PT (ALSO CALLED HIS YASH), WENT THRU THE EXT MED HISTORY, CALLED [facility] (IN [place] AND [place]) AND GOT A MED LIST FROM HIS WEIGHT LOSS CONSULTANT (DR. FELDER) TO COMPLETE THE MED REC PT WAS ABLE TO NAME HIS MEDICATIONS AND LET ME KNOW HOW/WHEN HE TAKES EACH. PT MENTIONED TAKING LOSARTAN, ELIQUIS AND AMLODIPINE HOWEVER I DID NOT SEE ANYTHING RECENT ON THE EXT MED HISTORY. I CALLED [facility] TO INQUIRE ABOUT THE MEDICATIONS BUT WAS TOLD THE ONLY 1 OF THOSE MEDS THEY HAVE FILLED IS AMLODIPINE 10MG (LAST FILLED 08-29-2019 #90/90DS) AND I DID INCLUDE THE PAST DUE REFILL ON THE MED REC I REACHED OUT TO YASH AND WAS TOLD THE PT GETS ELIQUIS 5MG FROM [place]. I THEN ASKED ABOUT LOSARTAN 100MG AND WHERE IT WAS FILLED. YASH LET ME KNOW THAT THE MEDICATION BOTTLE DIDNT HAVE A PT NAME LISTED OR THE PHARMACY LISTED. I ASKED IF IT COULD HAVE BEEN PURCHASED IN [place] LIKE THE ELIQUIS AND YASH THOUGHT THAT MAY BE WHERE IT CAME FROM. OTC MEDS: TYLENOL
--- NOTE | 2020-04-21 14:57 | NUR ---
Pt has Voodoo simona background but no specific local simona community. Chemical Processing Technician provided opportunity for pt to tell his story related to his one health issues, his dying son and his who also has health issues. We concluded with prayer.
[2020-04-21 16:27] VITALS: BP 128/70
[2020-04-21] MEDS: TAMSULOSIN 0.4 MG (FLOMAX) CAP PO SCH (17:27)
[2020-04-21 19:44] VITALS: BP 130/73
[2020-04-21] MEDS: APIXABAN 5 MG (ELIQUIS) TABLET PO SCH (20:32)
[2020-04-21] MEDS ORDERED: TAMSULOSIN 0.4 MG (FLOMAX) CAP PO SCH (21:00)
[2020-04-22] VITALS: BP 101/56
[2020-04-22] MEDS: MEROPENEM 500 MG/SWFI 10 ML IV PUSH IV SCH ×4 (03:45→09:20)
[2020-04-22 04:56] VITALS: BP 134/75
[2020-04-22 05:33] LABS: BASOPHILS % (AUTO) 0 % (0-10); EOSINOPHILS # (AUTO) 0.2 10^3/uL (0.0-0.3); EOSINOPHILS % (AUTO) 2 % (0-10); HEMATOCRIT 37 % (40-54); HEMOGLOBIN 11.6 g/dL (13.3-17.7); LYMPHOCYTES # (AUTO) 2.1 10^3/uL (1.0-4.0); LYMPHOCYTES % (AUTO) 19 % (12-44); MEAN CORPUSCULAR HEMOGLOBIN 28 pg (25-34); MEAN CORPUSCULAR HGB CONC 31 g/dL (32-36); MEAN CORPUSCULAR VOLUME 90 fL (80-99); MEAN PLATELET VOLUME 10.3 fL (9.0-12.2); MONOCYTES # (AUTO) 0.8 10^3/uL (0.0-1.0); MONOCYTES % (AUTO) 8 % (0-12); NEUTROPHILS % (AUTO) 71 % (42-75); PLATELET COUNT 135 10^3/uL (130-400); WHITE BLOOD COUNT 11.2 10^3/uL (4.3-11.0)
[2020-04-22 05:48] LABS: CHLORIDE 109 MMOL/L (98-107); POTASSIUM 3.6 MMOL/L (3.6-5.0); SODIUM 139 MMOL/L (135-145)
[2020-04-22 05:49] LABS: GLUCOSE 97 MG/DL (70-105)
[2020-04-22 05:51] LABS: CARBON DIOXIDE 20 MMOL/L (21-32)
[2020-04-22 05:53] LABS: CREATININE SERUM 1.04 MG/DL (0.60-1.30); GFR ESTIMATED > 60
[2020-04-22 05:54] LABS: BUN/CREATININE RATIO 15
[2020-04-22 08:00] VITALS: BP 130/76
[2020-04-22] MEDS ORDERED: LOSARTAN 100 MG (COZAAR) TABLET PO SCH (09:00)
[2020-04-22] MEDS ORDERED: BISOPROLOL 5 MG TAB (ZEBETA) PO SCH (09:00)
[2020-04-22] MEDS ORDERED: FINASTERIDE (PROSCAR) 5 MG TAB PO SCH (09:00)
[2020-04-22] MEDS ORDERED: amLODIPine 10 MG (NORVASC) TAB PO SCH (09:00)
[2020-04-22] MEDS ORDERED: LEVOTHYROXINE 50 MCG (LEVOTHROID) TAB PO SCH (09:00)
[2020-04-22] MEDS: APIXABAN 5 MG (ELIQUIS) TABLET PO SCH (09:18)
[2020-04-22] MEDS: DOCUSATE SODIUM 100 MG (COLACE) CAP PO SCH (09:19)
[2020-04-22] MEDS: SENNOSIDES 8.6 MG (SENOKOT) TAB PO SCH (09:37)
[2020-04-22] MEDS ORDERED: SULF1TAB35 PO ×2 (10:04→10:13)
[2020-04-22] MEDS ORDERED: TRIM/SULFAMETH 160/800 (SEPTRA DS) TAB PO NR (10:15)
[2020-04-22 11:14] VITALS: BP 130/76
--- NOTE | 2020-04-22 11:22 | NUR ---
Patient discharged to home care, eager to get out of the hospital as he has family issues to attend too. States he feels much better. Reviewed discharge orders and reviewed medications. Aware he has a BMP lab draw in a week.
== END 2020-04-22 11:15 | disposition home or self-care (01) | DRG 872 ==
LOC: EDUNIT# 13:15 → ER 13:18 → 4TH 14:16 → EDLOC 14:16
PROVIDERS: ADMIT Internal Medicine; ATTEND Internal Medicine
DX: A41.51 Sepsis due to Escherichia coli [E. coli] (principal); N39.0 Urinary tract infection, site not specified; Z16.12 Extended spectrum beta lactamase (ESBL) resistance; C79.9 Secondary malignant neoplasm of unspecified site; N17.9 Acute kidney failure, unspecified; I10 Essential (primary) hypertension; Z85.528 Personal history of other malignant neoplasm of kidney; Z90.5 Acquired absence of kidney; E66.9 Obesity, unspecified; Z68.31 Body mass index [BMI] 31.0-31.9, adult; Z86.711 Personal history of pulmonary embolism
CPT/HCPCS: 36415; 71045; 80048; 80053; 81000; 83605; 83735; 85007; 85025; 85027; 85610; 85730; 87040; 87077; 87088; 87186; 87804

== ENCOUNTER 2020-04-23 13:03 | Outpatient (RCR) | payer MEDICARE, OTHER ==
[~2020-04-23 13:03] MED LIST changes: +ACET325C7 PO; +AMLO-251 PO; +APIX5TAB PO; +ATOR10TA66 PO; +FINA5TAB6 PO; +LEVO50TA6 PO; +LOSA100T57 PO; +NF-BISOP5 PO; +NIVOLUMAB 480 MG in NS (IVPB) CANCER CENTER 100 ML IV SCH; +NS IV 1000 ML (CANCER CTR) IV SCH; +SULF1TAB35 PO; +TMSL.4C PO
== END 2020-07-22 | disposition home or self-care (01) ==
LOC: ONC 13:03
PROVIDERS: ATTEND Internal Medicine Hematology & Oncology
DX: Z51.11 Encounter for antineoplastic chemotherapy (principal); C64.1 Malignant neoplasm of right kidney, except renal pelvis; C77.2 Secondary and unspecified malignant neoplasm of intra-abdominal lymph nodes; I82.422 Acute embolism and thrombosis of left iliac vein; I10 Essential (primary) hypertension; Z85.51 Personal history of malignant neoplasm of bladder; Z90.6 Acquired absence of other parts of urinary tract; Z90.5 Acquired absence of kidney
CPT/HCPCS: 96413; G0463